=== PATIENT | female | born 1990 ===

== ENCOUNTER 2023-03-05 14:29 | Inpatient (IN) | payer MEDICAID ==
[2023-03-05] MEDS ORDERED: Carboprost Tromethamine 250 MCG/1 mL Vial IM PRN (20:10)
[2023-03-05] MEDS ORDERED: Lidocaine 1% 50 ML MDV INJECT PRN (20:10)
[2023-03-05] MEDS ORDERED: Methylergonovine 0.2 MG/1 ML Amp IM PRN (20:10)
[2023-03-05] MEDS ORDERED: Sodium Chloride 0.9% 20 ML SDV IV PRN (20:10)
[2023-03-05] MEDS ORDERED: Misoprostol 200 MCG Tab PO PRN (20:10)
[2023-03-05] MEDS ORDERED: Terbutaline 1 MG/ML SDV SUBCUT PRN (20:10)
[2023-03-05] MEDS ORDERED: Tranexamic Acid 1,000 MG in Sodium Chloride 0.9% 100 ML IV PRN (20:10)
[2023-03-05] MEDS ORDERED: Water For Irrigation,Sterile 1,000 ML Container IRR PRN (20:10)
[2023-03-05] MEDS ORDERED: Sodium Chloride 0.9% 2.5 ML Syringe FLUSH PRN (20:10)
[2023-03-05] MEDS ORDERED: Ondansetron 4 MG/2 ML SDV IVPUSH PRN (20:10)
[2023-03-05] MEDS ORDERED: Nalbuphine HCl 10 MG/ 1ML Amp IVPUSH PRN (20:10)
[2023-03-05] MEDS ORDERED: Sodium Chloride 0.9% 10 ML Syringe FLUSH PRN (20:10)
[2023-03-05] MEDS ORDERED: Oxytocin/0.9 % Sodium Chloride 30 UNIT/500 ML BAG IV SCH ×2 (20:15)
[2023-03-05 20:54] LABS: HEMATOCRIT 39.2 % (36.0-46.0); HEMOGLOBIN 13.4 g/dL (12.0-16.0); MEAN CORPUSCULAR HEMOGLOBIN 30.3 pg (27.0-32.0); MEAN CORPUSCULAR HGB CONC 34.2 g/dL (31.0-37.0); MEAN CORPUSCULAR VOLUME 88.7 fL (80.0-98.0); RED BLOOD CELL COUNT 4.42 M/uL (4.30-5.90); WHITE BLOOD CELL COUNT,WBC 10.64 K/uL (4.0-11.0)
[2023-03-05] MEDS ORDERED: Misoprostol 25 MCG (1/4 of 100 MCG) Tab VAG PRN (21:00)
[2023-03-06] MEDS ORDERED: Misoprostol 25 MCG (1/4 of 100 MCG) Tab VAG PRN (01:00)
[2023-03-06] MEDS: Lactated Ringers 1,000 ML IV SCH ×3 (05:27→08:55)
[2023-03-06] MEDS ORDERED: ePHEDrine 50 MG/ML SDV IVPUSH PRN ×2 (07:55)
[2023-03-06] MEDS ORDERED: Phenylephrine HCl 0.5 MG/5 ML AMP IVPUSH PRN (07:55)
[2023-03-06] MEDS ORDERED: Ropivacaine HCl/PF 400 MG in Premix Bag 1 BAG EPIDUR SCH (08:00)
[2023-03-06] MEDS ORDERED: Dexmedetomidine 200 MCG/2 ML SDV ONE (08:36)
[2023-03-06] MEDS ORDERED: oxyCODONE 5 MG Tab PO PRN (15:24)
[2023-03-06] MEDS ORDERED: Simethicone 80 MG Tab.Chew PO PRN (15:24)
[2023-03-06] MEDS ORDERED: Famotidine 20 MG Tab PO PRN (15:24)
[2023-03-06] MEDS ORDERED: Ibuprofen 800 MG Tab PO PRN (15:24)
[2023-03-06] MEDS ORDERED: Witch Hazel Medicated Pads 40/Jar TOP PRN (15:24)
[2023-03-06] MEDS ORDERED: Lanolin 100% Cream 7 GM Tube TOP PRN (15:24)
[2023-03-06] MEDS ORDERED: Bisacodyl 10 MG Supp RECTAL PRN (15:24)
[2023-03-06] MEDS ORDERED: Measles, Mumps & Rubella Vaccine 0.5 ML SDV SUBCUT ONE (15:24)
[2023-03-06] MEDS ORDERED: Docusate Sodium 100 MG Cap PO PRN (15:24)
[2023-03-06] MEDS ORDERED: Ibuprofen 400 MG Tab PO PRN (15:24)
[2023-03-06] MEDS ORDERED: Benzocaine/Menthol 20%-0.5% Spray 78 GM Cannister TOP PRN (15:24)
[2023-03-06] MEDS ORDERED: Acetaminophen 500 MG Tab PO PRN ×2 (15:24)
[2023-03-06] MEDS ORDERED: Aluminum Hydroxide/Magnesium Hydroxide/Simethicone XS Susp 30 ML Cup PO PRN (15:24)
[2023-03-07 06:35] LABS: HEMOGLOBIN 11.5 g/dL (12.0-16.0)
== END 2023-03-07 20:28 | disposition home or self-care (01) | DRG 807 ==
LOC: MW.OB 14:29 → OBSVTOIN 03-06 14:29 → MW.OB 03-06 18:42
PROVIDERS: ADMIT Obstetrics & Gynecology; ATTEND Obstetrics & Gynecology
PROC: 10E0XZZ Delivery of Products of Conception, External Approach (ICD-10-PCS; principal; 2023-03-06)
PROC: 10907ZC Drainage of Amniotic Fluid, Therapeutic from Products of Conception, Via Natural or Artificial Opening (ICD-10-PCS; 2023-03-06)
PROC: 3E0R3BZ Introduction of Anesthetic Agent into Spinal Canal, Percutaneous Approach (ICD-10-PCS; 2023-03-06)
PROC: 00HU33Z Insertion of Infusion Device into Spinal Canal, Percutaneous Approach (ICD-10-PCS; 2023-03-06)
PROC: 3E0P7VZ Introduction of Hormone into Female Reproductive, Via Natural or Artificial Opening (ICD-10-PCS; 2023-03-06)
PROC: 3E033VJ Introduction of Other Hormone into Peripheral Vein, Percutaneous Approach (ICD-10-PCS; 2023-03-06)
DX: O24.425 Gestational diabetes mellitus in childbirth, controlled by oral hypoglycemic drugs (principal); Z37.0 Single live birth; O66.0 Obstructed labor due to shoulder dystocia; O99.214 Obesity complicating childbirth; Z3A.38 38 weeks gestation of pregnancy; Z88.0 Allergy status to penicillin
CPT/HCPCS: 01967; 36415; 51702; 82947; 85014; 85018; 85027; 86592; 86850; 86900; 86901; A9270-GY; J2300; J2590; J3490; J7120